=== PATIENT | male | born 1995 | race Caucasian/White ===

== ENCOUNTER 2016-12-18 22:44 | Emergency (ER) | payer SELFPAY ==
[~2016-12-18] VITALS: Ht 190.5 cm; Wt 137.6 kg
[2016-12-18] MEDS ORDERED: DIPH,PERTUSS(ACELL),TET VAC/PF 0.5 ML IM-VACC ONE ×2 (23:14→23:30)
[2016-12-18] MEDS ORDERED: LIDOCAINE 1%-EPI 1:100K, 50ML INFIL ONE (23:30)
[2016-12-19] MEDS ORDERED: BACITRACIN ZINC OINT 500U/GM, 0.9 GM ONE (00:04)
[2016-12-19 00:21] VITALS: BP 168/80
== END 2016-12-19 00:22 | disposition home or self-care (01) ==
LOC: ED 23:59
DX: S81.811A Laceration without foreign body, right lower leg, initial encounter (principal); W25.XXXA Contact with sharp glass, initial encounter; Y93.89 Activity, other specified; Y92.89 Other specified places as the place of occurrence of the external cause; Y99.8 Other external cause status
CPT/HCPCS: 12032; 90471; 90715